=== PATIENT | female | born 1945 | race Caucasian/White ===

== ENCOUNTER 2018-01-30 07:33 | Inpatient (IN) | payer OTHER ==
[~2018-01-30] VITALS: Ht 147.3 cm; Wt 97.1 kg
--- NOTE | 2018-01-30 08:25 | ED DYSPNEA/ASTHMA COMPLAINT ---
History of Present Illness General Chief Complaint: General Adult Stated Complaint: MULTIPLE COMPLAINTS Source: patient, family, old records Exam Limitations: no limitations Vital Signs & Intake/Output Vital Signs & Intake/Output Vital Signs Date Time Temp Pulse Resp B/P B/P Pulse O2 O2 Flow FiO2 Mean Ox Delivery Rate 01/30 1032 81 18 119/58 95 Nasal 2.0L Cannula 01/30 0835 95 Nasal 2.0L Cannula 01/30 0752 99.6 93 24 151/72 90 Nasal 2.0L Cannula Allergies Coded Allergies: metoclopramide (From REGLAN) (CAUSED DEPRESSION 01/30/18) Triage Note: PT PRESENTS TO THE ER C/O COUGHING AND CONSTIPATION YESTERDAY, THEN HER BACK STARTED TO HURT LOWER BACK FLANK PAIN. THEN PT STATES HER PULSE WAS ELEVATED TO THE 90'S. PT HAS INTERSTITIAL LUNG DISEASE AND IS ON HOME 02 2L PRN. PT STATES "I KNOW MY SYMPTOMS SEEM VAGUE, I JUST DONT FEEL RIGHT" PT STATES I HAVE NO ENERGY AND I HAVE INCREASE SOB. Triage Nurses Notes Reviewed? yes HPI: Patient has interstitial lung disease and wears nocturnal oxygen. Yesterday throughout the day she was just feeling fatigued. Patient checked her oxygen level and noticed that it was in the low 90s and her heart rate was in the 90s as well. Patient states her normal heart rate is in the upper 50s to low 60s and the highest usually goes is up into the 70s so that it was 90 was concerning. Patient began to wear her oxygen and her oxygen level came up into the upper 90s however heart rate remained in the 90s. Patient denies any chest pain or palpitations. Patient chronically sleeps on a wedge pillow so does not know if she's been having orthopnea. There is no real dyspnea on exertion. Patient has a chronic dry cough and does not know if it is worse than normal. Overall patient just does not feel well and she cannot pinpoint exactly what is wrong she comes to the emergency department for evaluation. Past History Travel History Traveled to [place] past 21 day No Medical History Any Pertinent Medical History? see below for history Cardiovascular: CHF, hypertension, hyperlipidemia Respiratory: interstitial lung disease Renal: chronic kidney disease Surgical History Surgical History: non-contributory Psychosocial History What is your primary language Tajik Tobacco Use: Never used ETOH Use: denies use Illicit Drug Use: denies illicit drug use Family History Hx Contributory? No Review of Systems Review of Systems Constitutional: Reports: see HPI, chills, weakness. EENTM: Reports: no symptoms. Respiratory: Reports: see HPI, cough, short of breath. Cardiovascular: Reports: no symptoms. GI: Reports: no symptoms. Genitourinary: Reports: no symptoms. Musculoskeletal: Reports: no symptoms. Skin: Reports: no symptoms. Neurological/Psychological: Reports: no symptoms. Hematologic/Endocrine: Reports: no symptoms. Immunologic/Allergic: Reports: no symptoms. All Other Systems: Reviewed and Negative Physical Exam Physical Exam General Appearance: well developed/nourished, alert, awake, anxious, mild distress Head: atraumatic, normal appearance Eyes: Bilateral: PERRL, EOMI. Ears, Nose, Throat: normal pharynx, normal ENT inspection, hearing grossly normal Neck: normal inspection, supple, full range of motion, JVD Respiratory: crackles (BIBASILAR) Cardiovascular: normal peripheral pulses, systolic murmur Gastrointestinal: normal bowel sounds, soft, non-tender, no organomegaly Extremities: normal capillary refill, normal range of motion, pedal edema (TRACE ) Neurologic/Psych: no motor/sensory deficits, awake, alert, oriented x 3, normal gait, normal mood/affect Skin: intact, normal color, warm/dry Lymphatic: no anterior cervical isela Core Measures ACS in differential dx? No CVA/TIA Diagnosis No Sepsis Present: No Sepsis Focused Exam Completed? No Progress Differential Diagnosis: asthma, AMI, bronchitis, CHF, COPD, pulmonary embolism, pneumonia Plan of Care: Orders Procedure Date/time Status Heart Healthy Diet 01/30 L Active ED Holding Orders 01/30 1058 Active Admit to inpatient 01/30 1058 Active Vital Signs 01/30 1058 Active Code Status 01/30 1058 Active Patient Data 01/30 1054 Active US-EXT BILAT VENOUS DOPPLER 01/30 1047 Active Add-on Test (ER Only) 01/30 0945 Active BLOOD CULTURE 01/30 0926 Active LACTIC ACID 01/30 0907 Active Telemetry/Weaving Inspector 01/30 0824 Active TROPONIN LEVEL 01/30 0824 Active D-DIMER 01/30 0824 Complete COMPREHENSIVE METABOLIC PANEL 01/30 0824 Active CBC WITHOUT DIFFERENTIAL 01/31 824 Complete EKG 01/31 0824 Active URINALYSIS 01/30 0811 Complete RAPID VIRAL INFLUENZA A 01/30 0759 Complete Current Medications Sig/Garcia Start time Last Medication Dose Stop Time Status Admin Azithromycin 500 MG ONCE ONE 01/30 1015 AC (Zithromax) 01/30 1114 Dextrose/Water 250 ML (D5W) Guaifenesin 10 ML ONCE ONE 01/30 0900 CAN (Robitussin) 01/30 0901 Laboratory Tests 01/30/18 0907: Anion Gap 16, Estimated GFR 29 L, BUN/Creatinine Ratio 40.0 H, Glucose 187 H, Lactic Acid Pending, Calcium 9.3, Total Bilirubin 0.7, AST 20, ALT 28, Alkaline Phosphatase 92, Troponin I < 0.01, Total Protein 7.3, Albumin 4.4, Globulin 2.9, Albumin/Globulin Ratio 1.5, D-Dimer High Sensitivty 447 H, CBC w Diff MAN DIFF ORDERED, RBC 3.92 L, MCV 89.3, MCH 29.7, MCHC 33.3, RDW 14.6 H, MPV 8.1, Gran % 91.7 H, Lymphocytes % 4.4 L, Monocytes % 3.5, Eosinophils % 0.3, Basophils % 0.1, Absolute Granulocytes 21.5 H, Absolute Lymphocytes 1.0 L, Absolute Monocytes 0.8 H, Absolute Eosinophils 0.1, Absolute Basophils 0, Platelet Estimate VERIFIED BY SMEAR, Anisocytosis 1+ 01/30/18 0820: Urine Color STRAW, Urine Clarity CLEAR, Urine pH 6.0, Ur Specific [place] 1.010, Urine Protein NEG, Urine Ketones NEG, Urine Nitrite NEG, Urine Bilirubin NEG, Urine Urobilinogen 0.2, Ur Leukocyte Esterase NEG, Ur Microscopic EXAM NOT REQUIRED, Urine Hemoglobin NEG, Urine Glucose NEG Microbiology 01/30 1040 BLOOD: Blood Culture - RECD 01/30 1030 BLOOD: Blood Culture - RECD 01/30 08 NASOPHARYN: Influenza Virus A & B Rapid Smear - COMP Diagnostic Imaging: Viewed by Me: Radiology Read. Discussed w/RAD: Radiology Read. CXR Impression: PATIENT: LETTY RITCHIE PRESENT AGE: 72 PATIENT ACCOUNT NO: [id number] : 43 LOCATION: [facility] ORDERING PHYSICIAN: Toño Flores MD SERVICE DATE: 01/30/18 EXAM TYPE: RAD - XRY- PORTABLE CHEST XRAY EXAMINATION: XR PORTABLE CHEST CLINICAL INFORMATION: Pneumonia, cough. COMPARISON: CT chest 12/29/2014. TECHNIQUE: Portable frontal view of the chest was obtained. FINDINGS: There is mild cardiomegaly with increased pulmonary vascularity suggestive of mild pulmonary vascular congestion.. There is haziness in both lung bases likely secondary to congestion and less likely infiltrate. No suggestion of a pleural effusion. No gross bony abnormality. IMPRESSION: Thyromegaly with mild to moderate pulmonary vascular congestion. DICTATED BY: Manuel Snyder MD DATE/TIME DICTATED:01/30/18910 ADMISSIONS CLINICIAN:UZMA DATE/TIME TRANSCRIBED:01/30/18910 CONFIDENTIAL, DO NOT COPY WITHOUT APPROPRIATE AUTHORIZATION. <Electronically signed in Other Vendor System> SIGNED BY: Manuel Snyder MD 01/30/18916 Initial ED EKG: NSR, no ST T wave changes Rhythm Strip: normal sinus rhythm Departure Departure Disposition: STILL A PATIENT Condition: Stable Clinical Impression Primary Impression: Leukocytosis Secondary Impressions: Tachycardia Referrals: Joselyn DISLA,John Tipton (PCP/Family) Departure Forms: Customer Survey General Discharge Information Admission Note Spoke With: Dev DISLA,Jyoti Russo Documentation of Exam: Documentation of any treatments & extenuating circumstances including Concerns Regarding Discharge (functional status, medication knowledge or non-compliance, living conditions, etc.) that warrant an admission rather than observation: [IV ABX, TELE MONITORING, SERIAL ENZYMES, V/Q SCAN, VENOUS DOPPLER] Critical Care Note Critical Care Note Critical Care Time: mins: (90 MIN)
--- NOTE | 2018-01-30 09:17 | RADIOLOGY REPORT ---
EXAMINATION: XR PORTABLE CHEST CLINICAL INFORMATION: Pneumonia, cough. COMPARISON: CT chest 12/29/2014. TECHNIQUE: Portable frontal view of the chest was obtained. FINDINGS: There is mild cardiomegaly with increased pulmonary vascularity suggestive of mild pulmonary vascular congestion.. There is haziness in both lung bases likely secondary to congestion and less likely infiltrate. No suggestion of a pleural effusion. No gross bony abnormality. IMPRESSION: Thyromegaly with mild to moderate pulmonary vascular congestion.
[2018-01-30 09:24] LABS: ABSOLUTE BASOPHIL COUNT 0 /CUMM (0.0-0.2); ABSOLUTE EOSINOPHIL COUNT 0.1 /CUMM (0.0-0.7); ABSOLUTE GRANULOCYTE CT 21.5 /CUMM (1.4-6.5); ABSOLUTE MONOCYTE COUNT 0.8 /CUMM (0.10-0.60); BASOPHIL % 0.1 % (0.0-2.0); EOSINOPHIL % 0.3 % (0-5); GRANULOCYTE % 91.7 % (42.2-75.2); MEAN CORPUSCULAR HGB 29.7 PG (27.0-31.0); MEAN CORPUSCULAR HGB CONC 33.3 G/DL (33.0-37.0); MEAN CORPUSCULAR VOLUME 89.3 FL (81.0-99.0); MEAN PLATELET VOLUME 8.1 FL (7.4-10.4); PLATELET COUNT 317 /CUMM (130-400); RBC DISTRIBUTION WIDTH 14.6 % (11.5-14.5); RED BLOOD CELL CT 3.92 /CUMM (4.20-5.40); WHITE BLOOD CELL COUNT 23.4 /CUMM (4.8-10.8)
--- NOTE | 2018-01-30 11:36 | History & Physical ---
Alejandra DISLAAlexsandra 01/30/18 1136: General Information and HPI MD Statement: I have seen and personally examined LETTY RITCHIE and documented this H&P. The patient is a 72 year old F who presented with a patient stated chief complaint of [Increased Pulse rate at home]. Source of Information: patient Exam Limitations: no limitations History of Present Illness: 72-year-old female with a past medical history of ILD on 2 L nocturnal oxygen, CHF, hypertension, hyperlipidemia, CKD stage III presents with complaints of a higher than normal heart rate in the 90s since yesterday. She reports that yesterday after she came back from shopping, she noticed she was short of breath , her O2 sats were low and she was having trouble recovering which is unusual for her. She also noticed that her HR was also in the high 70s and trending up instead of normalizingto her usual 50/60s to low 70s. She used her NC O2 which increased her O2 sats to the 90s but her HR kept increasing and was at in the 90s at some point which never happens. AFter a few hours, she HR went back down to the 70s. However this morning on waking up, she noticed that her HR was back up in the 80s and she overall did not feel well though she could not put her hand on a particular symptom so she presented in the ED. She has a chronic dry cough for about 20yrs now due to her ILD and sees a Evaporator Repairer at [place] (Dr. Ruiz), was seen last in dec 2017 and was started on symbicort. She also sees Sql Server Bi Developer-Dr. Bailon for her CKD, GI-Dr. Rodriguez for GERD. She does not see an pie maker. Allergies/Medications Allergies: Coded Allergies: metoclopramide (From REGLAN) (CAUSED DEPRESSION 01/30/18) Home Med list Amlodipine Besylate 10 MG TABLET 10 MG PO DAILY CARDIAC (Reported) Aspirin (Aspirin*) 81 MG TAB.CHEW 81 MG PO DAILY CARDIAC (Reported) Atorvastatin Calcium 10 MG TABLET 10 MG PO DAILY CHOLESTEROL (Reported) Benzonatate 200 MG CAPSULE 200 MG PO TIDPRN COUGH (Reported) Budesonide/Formoterol Fumarate (Symbicort 160-4.5 Mcg Inhaler) 160 MCG-4.5 MCG/ ACTUATION HFA.AER.AD 2 PUFF INH BID COUGH (Reported) Carvedilol 12.5 MG TABLET 12.5 MG PO BID BLOOD PRESSURE (Reported) Cholecalciferol (Vitamin D3) 1,000 UNIT TABLET 2 TAB PO DAILY SUPPLEMENT ( Reported) Dextromethorphan Polistirex (Delsym) 30 MG/5 ML IVETT.ER.12H (Unknown Dose) PO PRN COUGH (Reported) Famotidine (Pepcid AC) 20 MG TABLET 20 MG PO DAILY ACID REFLUX (Reported) Furosemide 20 MG TABLET 20 MG PO DAILY DIURETIC (Reported) Glimepiride 4 MG TABLET 4 MG PO DAILY DIABETES (Reported) Hydralazine HCl 25 MG TABLET 25 MG PO TID BLOOD PRESSURE (Reported) Irbesartan 300 MG TABLET 300 MG PO DAILY HTN (Reported) IRON 18 MG TABLET 65 MG PO DAILY SUPPLEMENT (Reported) Loratadine 10 MG TABLET 10 MG PO DAILY COUGH (Reported) Metformin HCl 500 MG TABLET 500 MG PO BID DIABETES (Reported) Multivitamin (Daily Value) 1 EACH TABLET 1 TAB PO DAILY SUPPEMENT (Reported) Pantoprazole Sodium 40 MG TABLET.DR 40 MG PO DAILY ACID REFLUX (Reported) Compliance With Home Meds: GOOD Past History Travel History Traveled to [place] past 21 day No Medical History Cardiovascular: CHF, hypertension, hyperlipidemia Respiratory: interstitial lung disease Renal: chronic kidney disease Surgical History Surgical History: non-contributory Past Family/Social History Family History Relations & Conditions if any BROTHER FH: lung cancer MOTHER FH: stroke FATHER FH: stroke Psychosocial History Where do you live? Home ETOH Use: denies use Illicit Drug Use: denies illicit drug use Review of Systems Review of Systems Constitutional: Reports: chills, weakness. Denies: diaphoresis, fever. Cardiovascular: Denies: chest pain, palpitations. Respiratory: Reports: see HPI. GI: Reports: no symptoms. Genitourinary: Reports: no symptoms. Musculoskeletal: Reports: no symptoms. Skin: Reports: no symptoms. Exam & Diagnostic Data Last 24 Hrs of Vital Signs/I&O Vital Signs Date Time Temp Pulse Resp B/P B/P Pulse O2 O2 Flow FiO2 Mean Ox Delivery Rate 01/30 1313 98.0 78 20 128/60 96 Nasal 2.0L Cannula 01/30 1249 Nasal 1.0L Cannula 01/30 1212 98.7 77 18 115/58 97 Nasal 2.0L Cannula 01/30 1032 81 18 119/58 95 Nasal 2.0L Cannula 01/30 0835 95 Nasal 2.0L Cannula 01/30 0752 99.6 93 24 151/72 90 Nasal 2.0L Cannula Intake & Output 01/30 1600 01/30 0800 01/30 0000 Intake Total 610 Output Total 650 Balance -40 Intake, IV 250 Intake, Oral 360 Number 1 Bowel Movements Output, Urine 650 Patient 205 lb 205 lb Weight Weight Bed scale Reported by Patient Measurement Method Physical Exam General Appearance Alert, Oriented X3, Cooperative, No Acute Distress Skin No Significant Lesion Sepsis Skin Exam (color): Normal for Ethnicity HEENT PERRLA, EOMI, dry mucous membranes Neck Supple, No JVD Cardiovascular Regular Rate, Normal S1, Normal S2 Lungs bibasilar crackles, ocassional wheeze Abdomen Normal Bowel Sounds, Soft, No Tenderness Extremities Normal Pulses, trace pedal edema bilaterally Last 24 Hrs of Labs/Urban: Laboratory Tests 01/30/18 0907: Anion Gap 16, Estimated GFR 29 L, BUN/Creatinine Ratio 40.0 H, Glucose 187 H, Lactic Acid 1.0, Calcium 9.3, Total Bilirubin 0.7, AST 20, ALT 28, Alkaline Phosphatase 92, Troponin I < 0.01, Fhc-S-Ogrkokpmoej Pept Pending, Total Protein 7.3, Albumin 4.4, Globulin 2.9, Albumin/Globulin Ratio 1.5, D-Dimer High Sensitivty 447 H, CBC w Diff MAN DIFF ORDERED, RBC 3.92 L, MCV 89.3, MCH 29.7, MCHC 33.3, RDW 14.6 H, MPV 8.1, Gran % 91.7 H, Lymphocytes % 4.4 L, Monocytes % 3.5, Eosinophils % 0.3, Basophils % 0.1, Absolute Granulocytes 21.5 H, Absolute Lymphocytes 1.0 L, Absolute Monocytes 0.8 H, Absolute Eosinophils 0.1 , Absolute Basophils 0, Platelet Estimate VERIFIED BY SMEAR, Anisocytosis 1+ 01/30/18 0820: Urine Color STRAW, Urine Clarity CLEAR, Urine pH 6.0, Ur Specific [place] 1.010, Urine Protein NEG, Urine Ketones NEG, Urine Nitrite NEG, Urine Bilirubin NEG, Urine Urobilinogen 0.2, Ur Leukocyte Esterase NEG, Ur Microscopic EXAM NOT REQUIRED, Urine Hemoglobin NEG, Urine Glucose NEG Microbiology 01/30 1216 URINE ROUT: Legionella Antigen - COLB 01/30 1216 URINE ROUT: Streptococcus pneumoniae Antigen (M - COLB 01/30 1216 LOWER RESP: Respiratory Culture - COLB 01/30 1216 LOWER RESP: Gram Stain - COLB 01/30 1040 BLOOD: Blood Culture - RECD 01/30 1030 BLOOD: Blood Culture - RECD 01/30 0800 NASOPHARYN: Influenza Virus A & B Rapid Smear - COMP Diagnostic Data EKG Results NSR, no ST changes, rate 89 CXR Results Thyromegaly with mild to moderate pulmonary vascular congestion. Assessment/Plan Assessment: 72-year-old female with a past medical history of ILD on 2 L nocturnal oxygen, CHF, hypertension, hyperlipidemia, CKD stage III presents with complaints of a higher than normal heart rate in the 90s since yesterday. Assessment 1. Suspected community acquired pneumonia r/o vascular congestion 2. JOSE on CKD 3. History of ILD with chronic cough 4. Low suspicion for PE; Wells Score <2; D-dimer 447, LE dopplers negative for DVT 5. Thromegally on CXR Plan -Admit to Tele for close monitoring -Trend troponins and EKG -Check a non-contrast CT to better delineate PNA and r/o congestion -Check Legionella and strep pneumo antigens -Sputum culture if able to produce sputum; blood cultures x 2 -Continue IV ceftriaxone and azithromycin for possible CAP -Hold IVF for now, encourage oral intake for rehydration -Check a pro-BNP, check TSH -Check Legionella, Strep Pneumo Antigens -Hold oral hypoglycemics-Give Novolog SS Insulin and check fingersticks TIDAC/HS -Hold lasix and irbesatan due to JOSE -Resume her other important home medications -TRC nebs and O2 as needed -Repeat CBC/BEP in AM-F/U WBC and Creatinine -Vitals Q shift; watch for fevers -Follow attending recommendations As Ranked By This Provider Problem List: 1. Tachycardia 2. Pneumonia 3. JOSE (acute kidney injury) Core Measures/Misc (07/19) Acute Coronary Syndrome ACS Diagnosis: No Congestive Heart Failure Congestive Heart Failure Diagnosis No Cerebrovascular Accident CVA/TIA Diagnosis: No VTE (View Protocol) VTE Risk Factors Acute Medical Illness No Mechanical VTE Prophylaxis d/t N/A MechProphylax Ordered No VTE Pharm Prophylaxis d/t NA PharmProphylax ordered Sepsis (View protocol) Sepsis Present: No Resident Review Statement Resident Statement: examined this patient Other Findings: see HPI Jyoti Méndez MD 01/30/18 1425: Attending MD Review Statement Attending Statement Attending MD Statement: examined this patient, discuss w/resident/PA/DUPLICATE MAKER, agreed w/resident/PA/DUPLICATE MAKER, reviewed EMR data (avail), discussed with case mgmt, reviewed images Attending Assessment/Plan: 82-year-old fairly complex female with past medical history of centrilobular emphysema and interstitial lung disease on nocturnal oxygen, diabetes, hypertension and hyperlipidemia. She is here with a constellation of nonspecific symptoms with acute hypoxemic respiratory failure as evidenced by a sat of 78-86% in the emergency room with minimal activity and mild ambulation, cough with phlegm, tachycardia, leukocytosis with a left shift, a chest x-ray that's uninterpretable given her underlying lung disease and JOSE with a BUN of 68 and a creatinine of 1.7. I think all of her symptoms are due to an underlying infection and right now I' ll give her IV ceftriaxone and azithromycin given that blood cultures have been obtained to cover for community-acquired pneumonia. Obviously given her underlying interstitial lung disease I have to consider the possibility of other atypical organisms as well. We'll need to follow her clinical status closely in terms of her white count, saturation and heart rate. And check a sputum Gram stain and culture. I think the JSOE is secondary to the infection. She has a history of chronic CHF, she doesn't appear to be in acute CHF but will get a BNP. Given the uninterpretability of the chest x-ray, will get a noncontrast chest CT at this point which did help us define how much of this is pneumonia, exacerbation of ILD and/or CHF. We'll hold her Lasix and Arb given the JOSE and continue her Norvasc, aspirin and statin, Coreg and hydralazine. Continue TRC with nebs with her Symbicort. Put her on DVT prophylaxis and follow closely. Also fingersticks with insulin sliding scale.
[2018-01-30] MEDS ORDERED: AMLODIPINE BESY10 M1 PO (11:47)
[2018-01-30] MEDS ORDERED: IRBESARTAN300 M1 PO (11:47)
[2018-01-30] MEDS ORDERED: HYDRALAZINE HCL25 M1 PO (11:48)
[2018-01-30] MEDS ORDERED: CARVEDILOL12.5 M1 PO (11:48)
[2018-01-30] MEDS ORDERED: ATORVASTATIN CA10 M1 PO (11:48)
[2018-01-30] MEDS ORDERED: GLIMEPIRIDE4 M1 PO (11:49)
[2018-01-30] MEDS ORDERED: METFORMIN HCL500 M3 PO (11:49)
--- NOTE | 2018-01-30 11:49 | ULTRASOUND REPORT ---
EXAMINATION: US TRIPLEX OF LOWER EXTREMITIES, BILATERAL CLINICAL INFORMATION: Positive d-dimer. COMPARISON: None TECHNIQUE: Color-flow triplex imaging with spectral analysis and compression Doppler were performed on the lower extremities. FINDINGS: Respiratory variation, normal compression and augmented flow are noted throughout the lower extremities. The visualized common femoral vein, superficial femoral vein, profunda femoral vein, popliteal vein and midcalf peroneal and posterior tibial venous segments show no evidence of deep venous thrombosis. There is no Narayanan's cyst. IMPRESSION: Normal triplex scan without evidence of deep venous thrombosis involving the lower extremities.
[2018-01-30] MEDS ORDERED: FUROSEMIDE20 M1 PO (11:50)
[2018-01-30] MEDS ORDERED: PANTOPRAZOLE SO40 M1 PO (11:50)
[2018-01-30] MEDS ORDERED: PEPCID AC20 M2 PO (11:50)
[2018-01-30] MEDS ORDERED: BENZONATATE200 M1 PO (11:51)
[2018-01-30] MEDS ORDERED: SYMBICORT 16010.2 GM INH (11:51)
[2018-01-30] MEDS ORDERED: ASPIRIN81 M4 PO (11:52)
[2018-01-30] MEDS ORDERED: DELSYM30 MG/5 M1 PO (11:52)
[2018-01-30] MEDS ORDERED: LORATADINE10 M1 PO (11:53)
[2018-01-30] MEDS ORDERED: VITAMIN D31000 UNI2 PO (11:54)
[2018-01-30] MEDS ORDERED: DAILY VALUE1 EACH PO (11:54)
[2018-01-30] MEDS ORDERED: IRON18 MG PO (11:55)
[2018-01-30 13:13] VITALS: BP 128/60
--- NOTE | 2018-01-30 14:11 | Admission Certification ---
Admission Certification Certification Statement - As attending physician, I certify that at the time of - admission, based on clinical presentation, severity of - symptoms, need for further diagnostic testing and - therapeutic interventions, and risk of adverse outcomes - without in-hospital treatment, in my clinical assessment, - this patient requires an acute hospital stay for a minimum - of two nights or longer. I have also considered psychsocial - factors such as support system, advanced age, financial - issues, cognitive issues, and failed out-patient treatments, - past re-admission history, safety of patient, and lack of - compliance as applicable. Specific rationale supporting this admission is: Community-acquired pneumonia in patient with underlying interstitial lung disease, JOSE and tachycardia.
--- NOTE | 2018-01-30 18:23 | CT SCAN REPORT ---
EXAMINATION: CT CHEST WITHOUT CONTRAST CLINICAL INFORMATION: Tachycardia, elevated white blood cell count, increased O2 requirement. History of interstitial lung disease. Presumptive diagnosis of pneumonia, rule out congestion. COMPARISON: Chest x-ray dated 01/30/2018. The scan of the chest dated 12/29/2014. TECHNIQUE: Multidetector volumetric CT imaging of the chest was obtained noncontrast. Sagittal and coronal reformations were obtained. DLP: 448.28 mGy-cm. FINDINGS: LUNGS: Diffuse subpleural reticulation and interlobular septal thickening is seen involving all lobes of the lungs, unchanged in distribution when compared to the prior exam. There may be interval progression in the extent of disease in the lower lobes bilaterally with increasing reticulation and thickening of the septae noted. A few subtle areas of subpleural honeycomb cyst formation is also noted. There are also superimposed increasing patchy groundglass opacities in the mid and lower lungs and subtle tubular bronchiectatic changes are now more evident in the right middle lobe and lingula and to a lesser extent in both lower lobes. There are multiple scattered calcified granulomas in the lungs bilaterally. No suspicious solid noncalcified lung nodule or mass. No effusion or pneumothorax. LYMPHOVASCULAR STRUCTURES: Aortic and heart size normal. No pericardial effusion. Prominent atherosclerotic calcifications of the coronary arteries, especially the left anterior descending coronary artery and its branches are seen. There is enlargement of the main, right and left pulmonary arteries with the main pulmonary artery measuring 3.3 cm as compared to the aorta at the same level, which measures 3.2 cm in maximal diameter. Findings are suspicious for pulmonary arterial hypertension. There are multiple enlarged mediastinal lymph nodes, including a right lower paratracheal lymph node, which measures 1.4 cm in short axis as compared to 1.1 cm previously. A left lower paratracheal lymph node measures 1.2 cm in short axis as compared to 0.7 cm previously. Subcarinal lymph nodes measure up to 1.2 cm as compared to 0.9 cm previously. Evaluation of the raffaele is difficult for the presence of lymph nodes since no intravenous contrast was given. Right hilar adenopathy is suspected, measuring up to 1.3 cm in short axis as compared to 0.9 cm previously. No significant hilar adenopathy is noted. THYROID GLAND: Unremarkable to the extent included. UPPER ABDOMEN: Post cholecystectomy digna is seen in the gallbladder fossa. Included portions of the liver and spleen are unremarkable. Pancreas is diffusely atrophic and fat infiltrated. Both adrenal glands are normal. The kidneys bilaterally demonstrate variably sized masses, several of which are fluid attenuation and consistent with cysts. Some of the masses are hyperdense, including a 0.7 cm mid right renal mass (series 2, image 240), not included on prior CT scan and a 1.2 x 0.7 cm hyperdense mass in the upper pole of the left kidney, larger compared to 0.7 cm previously. These bilateral hyperdense renal masses measure greater than 70 Hounsfield units and are most consistent with hemorrhagic cysts. BONES: There is diffuse osteopenia with multilevel moderate vertebral spondylosis throughout the lower cervical, thoracic, and upper lumbar spine. No suspicious bone findings. IMPRESSION: 1. Lung parenchymal findings are similar in distribution to the previous CT scan from 2015 but increased in severity, especially in the mid and lower lung zones bilaterally. Findings are suspicious for progressive interstitial lung disease and fibrosis, as can be seen with UIP pattern, such as idiopathic pulmonary fibrosis. Close clinical correlation is requested. 2. Enlarging mediastinal adenopathy is seen. This could potentially be reactive to the progressive lung disease. However, close clinical correlation and follow-up is recommended. 3. Findings consistent with pulmonary arterial hypertension. 4. Evidence of prior granulomatous lung disease. 5. Bilateral renal cysts and probable hyperdense hemorrhagic cysts.
[2018-01-30 22:39] VITALS: BP 141/67
[2018-01-31 07:19] VITALS: BP 134/54
[2018-01-31 08:18] LABS: ABSOLUTE BASOPHIL COUNT 0 /CUMM (0.0-0.2); ABSOLUTE EOSINOPHIL COUNT 0.1 /CUMM (0.0-0.7); ABSOLUTE LYMPH COUNT 2.1 /CUMM (1.2-3.4); ABSOLUTE MONOCYTE COUNT 0.8 /CUMM (0.10-0.60); BASOPHIL % 0.2 % (0.0-2.0); GRANULOCYTE % 76.8 % (42.2-75.2); HEMATOCRIT 31.3 % (37-47); MEAN CORPUSCULAR HGB 29.9 PG (27.0-31.0); MEAN CORPUSCULAR HGB CONC 33.2 G/DL (33.0-37.0); MEAN PLATELET VOLUME 8.6 FL (7.4-10.4); PLATELET COUNT 278 /CUMM (130-400); RBC DISTRIBUTION WIDTH 14.9 % (11.5-14.5); RED BLOOD CELL CT 3.47 /CUMM (4.20-5.40)
--- NOTE | 2018-01-31 08:50 | PN- Housestaff ---
Adebayo DISLA,[facility] 01/31/18 0850: Subjective Follow-up For: CAP Interstitial lung disease Subjective: Patient was seen and examined this morning, offers no new complaints. Continues to have her chronic dry cough, no fever or chills. No overnight events reported by the nurse of the patient. Vital signs are stable. Review of Systems Constitutional: Reports: see HPI. Objective Last 24 Hrs of Vital Signs/I&O Vital Signs Date Time Temp Pulse Resp B/P B/P Pulse O2 O2 Flow FiO2 Mean Ox Delivery Rate 01/31 0932 78 134/54 01/31 0931 78 134/54 01/31 0931 78 134/54 01/31 0719 98.3 78 16 134/54 96 Nasal 2.0L Cannula 01/31 0000 Nasal 2.0L Cannula 01/30 2312 Nasal 2.0L Cannula 01/30 2251 78 140/78 01/30 2239 98.6 76 20 141/67 96 Nasal 2.0L Cannula 01/30 2113 89 140/78 01/30 1729 78 128/60 Intake & Output 01/31 1600 01/31 0800 01/31 0000 Intake Total 120 120 Output Total Balance 120 120 Intake, Oral 120 120 Patient 97.069 kg Weight Weight Bed scale Measurement Method Physical Exam General Appearance: Alert, Oriented X3, Cooperative, No Acute Distress Skin: No Rashes, No Breakdown, No Significant Lesion Skin Temp/Moisture Exam: Warm/Dry HEENT: Atraumatic, PERRLA, EOMI, Mucous Membr. moist/pink Neck: Supple Cardiovascular: Regular Rate, Normal S1, Normal S2, No Murmurs Lungs: Clear to Auscultation Abdomen: Normal Bowel Sounds, Soft, No Tenderness Neurological: Normal Gait, Normal Speech, Strength at 5/5 X4 Ext, Normal Tone, Sensation Intact, Cranial Nerves 3-12 NL, Reflexes 2+ Extremities: No Clubbing, No Cyanosis, No Edema, Normal Pulses Assessment/Plan Assessment: Ms. Murphy is 72-year-old female with a past medical history of ILD on 2 L nocturnal oxygen, CHF, hypertension, hyperlipidemia, CKD stage III presents with complaints of elevated heart rate. Assessment 1. Community-acquired pneumonia in setting of interstitial lung disease--DVT where excluded 2. JOSE on CKD 3. Thyromegally on CXR Plan -Patient is responding well to antibiotic, white blood cell decreased from 23-13 -Continue ceftriaxone and azithromycin IV -Continue TRC and nebs -Trops, EKG, Legionella and strep pneumonia antigens are negative -Follow up sputum, blood culture -Patient wants to use her own normal saline nasal spray and diphenhydramine for nasal congestion, were ordered in addition to Flonase nasal spray -Continue Novolog SS Insulin and check fingersticks TIDAC/HS -Continue to hold Lasix and irbesatan, follow kidney function closely to determine when to start medication -Follow attending recommendations Problem List: 1. Pneumonia Pain Ratin Pain Location: n/a Pain Goal: Pain 4 or less Pain Plan: see medication Tomorrow's Labs & Rationales: CBC, BMP Dev DISLA,Jyoti 01/31/18 1156: Attending MD Review Statement Attending Statement Attending MD Statement: examined this patient, discuss w/resident/PA/TOUR BUS DRIVER/GUIDE, agreed w/resident/PA/TOUR BUS DRIVER/GUIDE, reviewed EMR data (avail), reviewed images Attending Assessment/Plan: 72-year-old fairly complex female with past medical history of centrilobular emphysema and interstitial lung disease on nocturnal oxygen, diabetes, hypertension and hyperlipidemia. She is here with a constellation of nonspecific symptoms with acute hypoxemic respiratory failure as evidenced by a sat of 78-86% in the emergency room with minimal activity and mild ambulation, cough with phlegm, tachycardia, leukocytosis with a left shift, a chest x-ray that's uninterpretable given her underlying lung disease and JOSE with a BUN of 68 and a creatinine of 1.7. We are treating her with IV ceftriaxone and azithromycin for community-acquired pneumonia. We repeated the noncontrast chest CT yesterday which shows a worsening of the interstitial lung disease suggestive of fibrosis versus UIP. She clearly follows with a interstitial lung disease doctor at [place]. She is well aware of the progression of the disease and follows closely with that physician at [place]. She says she was referred to that physician by a support architect here locally. At this point overall she appears to be slightly better. Her white count has come down and her O2 sats are doing better. She does have evidence of adenopathy in the chest CT that's likely reactive and she also has evidence of pulmonary arterial hypertension which explains why she takes the Lasix. Given the JOSE on CKD we have the arb and Lasix on hold. For the diabetes we also have the glimepiride and metformin on hold. Will need to follow the white count and the renal function and make a decision about restarting them slowly one at a time. Her tachycardia is better with treatment of the infection and the Dopplers negative for a DVT. I think we can safely take her off the monitor and treat her as a GEN med patient.
[2018-01-31 14:00] VITALS: BP 112/60
[2018-01-31 23:04] VITALS: BP 138/64
[2018-02-01 06:39] VITALS: BP 124/68
[2018-02-01 07:49] LABS: ABSOLUTE BASOPHIL COUNT 0.1 /CUMM (0.0-0.2); ABSOLUTE EOSINOPHIL COUNT 0.3 /CUMM (0.0-0.7); ABSOLUTE LYMPH COUNT 2.3 /CUMM (1.2-3.4); ABSOLUTE MONOCYTE COUNT 0.8 /CUMM (0.10-0.60); BASOPHIL % 0.6 % (0.0-2.0); EOSINOPHIL % 2.7 % (0-5); GRANULOCYTE % 67.2 % (42.2-75.2); HEMATOCRIT 30.9 % (37-47); MEAN CORPUSCULAR HGB 29.8 PG (27.0-31.0); MEAN CORPUSCULAR HGB CONC 33.1 G/DL (33.0-37.0); MEAN CORPUSCULAR VOLUME 90.1 FL (81.0-99.0); MEAN PLATELET VOLUME 8.4 FL (7.4-10.4); PLATELET COUNT 271 /CUMM (130-400); RBC DISTRIBUTION WIDTH 14.3 % (11.5-14.5); RED BLOOD CELL CT 3.43 /CUMM (4.20-5.40); WHITE BLOOD CELL COUNT 10.5 /CUMM (4.8-10.8)
--- NOTE | 2018-02-01 08:32 | PN- Housestaff ---
Ailyn Grimaldo MD,[facility] 02/01/18 0832: Subjective Follow-up For: CAP Interstitial lung disease Complaints: no complaints Subjective: Patient was comfortably sitting in the chair. She did not offer any acute complaints. She denied any acute shortness of breath or chest pain. She does have some residual cough. She remained afebrile. Review of Systems Constitutional: Denies: chills, fever. EENTM: Denies: visual changes. Cardiovascular: Denies: chest pain, palpitations. Respiratory: Reports: cough. Denies: short of breath. Gastrointestinal: Denies: abdominal pain, nausea, vomiting. Genitourinary: Denies: dysuria. Objective Last 24 Hrs of Vital Signs/I&O Vital Signs Date Time Temp Pulse Resp B/P B/P Pulse O2 O2 Flow FiO2 Mean Ox Delivery Rate 02/01 0917 74 150/60 02/01 0916 74 150/60 02/01 0639 97.8 76 18 124/68 95 Nasal Cannula 01/31 2304 98.1 82 16 138/64 96 Nasal 2.0L Cannula 01/31 2237 Nasal 2.0L Cannula 01/31 2220 82 168/64 01/31 2220 82 138/64 01/31 1700 97.8 01/31 1400 97.8 80 20 112/60 94 Intake & Output 02/01 1600 02/01 0800 02/01 0000 Intake Total 240 480 Output Total Balance 240 480 Intake, Oral 240 480 Number 0 1 Bowel Movements Patient 214 lb Weight Physical Exam General Appearance: Alert, Oriented X3, Cooperative, No Acute Distress HEENT: Atraumatic Neck: No JVD Cardiovascular: Regular Rate, Normal S1, Normal S2 Lungs: Clear to Auscultation, Normal Air Movement Abdomen: Normal Bowel Sounds, Soft, No Tenderness Neurological: Normal Speech, Normal Tone, Sensation Intact Extremities: No Cyanosis, No Edema Vascular: Normal Pulses Current Medications: Current Medications Sig/Garcia Start time Last Medication Dose Route Stop Time Status Admin Acetaminophen 650 MG .STK-MED ONE 01/31 2211 DC PO 02/01 2212 Acetaminophen 650 MG Q6P PRN 01/30 1430 AC 01/31 PO 2221 Amlodipine Besylate 10 MG 2200 02/01 2200 AC PO Amlodipine Besylate 10 MG DAILY 01/31 1000 DC 01/31 PO 0932 Aspirin 81 MG DAILY 02/01 1000 AC 02/01 PO 0917 Atorvastatin Calcium 10 MG DAILY 01/31 1000 AC 02/01 PO 0918 Azithromycin 500 MG Q24H 01/31 1200 AC 01/31 Sodium Chloride 250 ML IV 1102 Benzonatate 200 MG TID PRN 01/30 1445 AC 02/01 PO 0506 Budesonide/ 2 PUF BID 01/30 2200 AC 02/01 Formoterol Fumarate INH 0934 Carvedilol 12.5 MG BID 01/30 2200 AC 02/01 PO 0917 Ceftriaxone Sodium 1,000 MG DAILY@1100 01/31 1100 AC 01/31 IV 1053 Cholecalciferol 2,000 IU DAILY 01/31 1000 AC 02/01 PO 0924 Fluticasone 2 SPRAY DAILY PRN 01/31 1015 AC Propionate SARAH Guaifenesin 10 ML .STK-MED ONE 01/31 2300 DC PO 01/31 2301 Guaifenesin 10 ML Q4P PRN 01/30 1430 AC 02/01 PO 0936 Guaifenesin/ 10 ML .STK-MED ONE 01/31 1903 DC Dextromethorphan PO 01/31 1904 Heparin Sodium 5,000 UNIT Q8 01/30 1429 AC (Porcine) SC Hydralazine HCl 25 MG TID 01/30 1600 AC 02/01 PO 0916 Insulin Aspart 0 TIDAC 01/30 1700 AC 01/31 SC 1700 Multivitamins 1 TAB DAILY 01/31 1000 AC 02/01 Therapeutic PO 0923 Omeprazole 40 MG DAILY AC 01/31 0700 AC 02/01 PO 0507 Phenylephrine HCl 1 SPRAY AT BEDTIME 01/31 2200 AC 01/31 SARAH 02/02 2201 2222 Polyethylene Glycol 17 GM DAILY 01/30 1436 AC 02/01 PO 0921 Psyllium Hydrophilic 1 PAC DAILY 01/31 1000 AC 02/01 Mucilloid PO 0918 Senna/Docusate Sodium 2 TAB DAILY PRN 01/30 1445 AC PO Sodium Chloride 2 SPRAY Q4P PRN 01/30 1545 AC SARAH Last 24 Hrs of Lab/Urban Results Last 24 Hrs of Labs/Mics: Laboratory Tests 02/01/18 0640: Anion Gap 14, Estimated GFR 37 L, BUN/Creatinine Ratio 32.1 H, CBC w Diff NO MAN DIFF REQ, RBC 3.43 L, MCV 90.1, MCH 29.8, MCHC 33.1, RDW 14.3, MPV 8.4, Gran % 67.2, Lymphocytes % 22.2, Monocytes % 7.3, Eosinophils % 2.7, Basophils % 0.6, Absolute Granulocytes 7.0 H, Absolute Lymphocytes 2.3, Absolute Monocytes 0.8 H, Absolute Eosinophils 0.3, Absolute Basophils 0.1 Lines/Diet/Fluids Fluids/Infusions: none Lines: peripheral lines Restraints: none Assessment/Plan Assessment: 72-year-old female with past medical history significant for non-insulin- dependent diabetes mellitus, centrilobular emphysema and interstitial lung disease, follows up with box toe buffer at [facility], on 1-3 L of oxygen as needed, history of hypertension, history of hyperlipidemia, history of stage III chronic kidney disease, came to emergency department with chief complaint of increased heart rate. Patient was admitted on telemetry for suspicion of tachycardia and then transferred to general medicine floor for the management of following problems. Community-acquired pneumonia in setting of interstitial lung disease/ centrilobular emphysema Patient presented with leukocytosis 23 and left-sided shift which decreased to 13 yesterday. Today white count has normalized. She did not have any high- grade temperature spikes during hospitalization. Overnight she remained afebrile. She does not have any congestion/Rales or crackles examination. She is not tachypneic, but does complain of some residual cough and currently at her baseline oxygen requirement. Patient was treated for suspected community- acquired pneumonia with IV antibiotics and putting ceftriaxone and azithromycin. Since patient is stable today and her oxygen requirement is at his baseline we can switched antibiotics to by mouth and discharge the patient. Legionella and strep pneumonia antigens are negative. CAT scan of the chest was obtained without IV contrast that showed Lung parenchymal findings are similar in distribution to the previous CT scan from 2015 but increased in severity, especially in the mid and lower lung zones bilaterally. Enlarging mediastinal adenopathy, and pulmonary arterial hypertension are also seen. Evidence of prior granulomatous lung disease. Reason for obtaining CAT scan was confusing picture of chest x-ray that showed cardiomegaly and congestion along with leukocytosis. CT scan of the chest reported findings suspicious for pulmonary arterial hypertension. Patient was told to follow-up with box toe buffer at [facility] after discharge and will provide her the copies of this CAT scan. Patient had a d-dimer is slightly elevated therefore ultrasound extremity was ordered which was negative for DVT. Acute on chronic CKD- resolved Patient was admitted with a creatinine of 1.7. Her baseline is 1.4-1.3. She is likely dehydrated as patient admitted to decreased by mouth intake. Currently she is back to her baseline History of eng-[id number] diabetes mellitus Fingersticks are well controlled. Patient currently on insulin sliding scale. We'll switch to insulin sliding scale back to by mouth oral hypoglycemic agents on discharge. Patient is full code Patient is on diabetic diet Patient is on pain management Patient is on heparin for DVT prophylaxis Problem List: 1. Pneumonia Pain Ratin Pain Location: NA Pain Goal: Pain 4 or less Pain Plan: Continue current pain meds Tomorrow's Labs & Rationales: Not needed as patient be discharged Raymond Coleman MD 02/01/18 1715: Attending MD Review Statement Attending Statement Attending MD Statement: examined this patient, discuss w/resident/PA/NEEDLE PUNCH MACHINE OPERATOR HELPER, agreed w/resident/PA/NEEDLE PUNCH MACHINE OPERATOR HELPER, reviewed EMR data (avail), discussed with case mgmt, amended to note Attending Assessment/Plan: The patient was seen and discussed with house staff. OK to discharge today. Patient is back to baseline. Follow-up with [facility].
--- NOTE | 2018-02-01 11:10 | Patient Discharge Instructions ---
Discharge Instructions General Discharge Information You were seen/treated for: CAP Interstitial lung disease Special Instructions: Follow-up with bending shed worker Dr.Antino Alexis, at [facility] after discharge. Follow-up with primary care doctor after discharge. Follow-up [facility] in a week after discharge Diet Continue normal diet: Yes Recommended Diet: Diabetic Activity Full Activity/No Limits: Yes Acute Coronary Syndrome Inclusion Criteria At DC or during hospital stay patient has or had the following: ACS DIAGNOSIS No Discharge Core Measures Meds if any: Prescribed or Continued at Discharge Meds if any: NOT Prescribed or Continued at Discharge Congestive Heart Failure Inclusion Criteria At DC or during hospital stay patient has or had the following: CHF DIAGNOSIS No Discharge Core Measures Meds if any: Prescribed or Continued at Discharge Meds if any: NOT Prescribed or Continued at Discharge Cerebrovascular accident Inclusion Criteria At DC or during hospital stay patient has or had the following: CVA/TIA Diagnosis No Discharge Core Measures Meds if any: Prescribed or Continued at Discharge Meds if any: NOT Prescribed or Continued at Discharge Venous thromboembolism Inclusion Criteria VTE Diagnosis No VTE Type NONE VTE Confirmed by (Test) NONE Discharge Core Measures - Per Current guidelines, there needs to be overlap - treatment for the first 5 days of Warfarin therapy. - If discharged on Warfarin prior to 5 days of - overlap therapy, the patient will need to be - assessed for post discharge needs including - *Post discharge parental anticoagulation - *Warfarin and/or parental anticoagulation education - *Follow up date to check INR post discharge At least 5 days overlap therapy as Inpatient No Meds if any: Prescribed or Continued at Discharge Note: Overlap Therapy is Warfarin and Anticoagulant Meds if any: NOT Prescribed or Continued at Discharge
[2018-02-01] MEDS ORDERED: AZITHROMYCIN250 M1 PO ×2 (12:39→14:09)
[2018-02-01 14:57] VITALS: BP 158/56
--- NOTE | 2018-02-01 15:54 | Discharge Summary ---
Visit Information Visit Dates Admission Date: 01/30/18 Discharge Date: 02/01/18 Hospital Course Course Attending Physician: Raymond Coleman MD Primary Care Physician: John Alves MD Hospital Course: 72-year-old female with past medical history significant for non-insulin- dependent diabetes mellitus, centrilobular emphysema and interstitial lung disease, follows up with investigative reporter at [facility], on 1-3 L of oxygen as needed, history of hypertension, history of hyperlipidemia, history of stage III chronic kidney disease, came to emergency department with chief complaint of increased heart rate. Patient was admitted on telemetry for suspicion of tachycardia and then transferred to general medicine floor for the management of following problems. Community-acquired pneumonia in setting of interstitial lung disease/ centrilobular emphysema Patient presented with leukocytosis 23 and left-sided shift which decreased to 13 yesterday. Her white count normalized in 2 days. She did not have any high- grade temperature spikes during hospitalization. She did not have any congestion/rales or crackles on lung examination. She was not tachypneic, but did complain of some residual cough andon discharge she was at her baseline oxygen requirement. Patient was treated for suspected community-acquired pneumonia with IV antibiotics ceftriaxone and azithromycin. Legionella and strep pneumonia antigens are negative. CAT scan of the chest was obtained without IV contrast that showed Lung parenchymal findings are similar in distribution to the previous CT scan from 2015 but increased in severity, especially in the mid and lower lung zones bilaterally. Enlarging mediastinal adenopathy, and pulmonary arterial hypertension are also seen. Evidence of prior granulomatous lung disease. Reason for obtaining CAT scan was confusing picture of chest x-ray that showed cardiomegaly and congestion along with leukocytosis. CT scan of the chest reported findings suspicious for pulmonary arterial hypertension. We switched antibiotics to by mouth and discharged the patient on PO azithromycin. Patient was told to follow-up with investigative reporter at [facility] after discharge and will provide her the copies of this CAT scan. Acute on chronic CKD stage 3- resolved Patient was admitted with a creatinine of 1.7. Her baseline is 1.4-1.3. She was likely dehydrated as patient admitted to decreased by mouth intake. Currently she is back to her baseline creatinine levels. History of [id number] diabetes mellitus Fingersticks were well controlled. Patient was on insulin sliding scale during the hospitalization. We switched the insulin sliding scale back to by mouth oral hypoglycemic agents on discharge. Patient had a d-dimer on admission, which was slightly elevated therefore ultrasound extremity was ordered which was negative for DVT. On the initial admission H&P, CHF was mentioned but there was no evidene based on the clinical data. Patient was full code Patient was on diabetic diet Patient was on pain management Patient was on heparin for DVT prophylaxis Allergies: Coded Allergies: metoclopramide (From REGLAN) (CAUSED DEPRESSION 01/30/18) Disposition Summary Disposition Principal Diagnosis: Community-acquired pneumonia in setting of interstitial lung disease/ centrilobular emphysema Acute on chronic CKD- resolved Additional Diagnosis: History of [id number] diabetes mellitus Discharge Disposition: home or self care Discharge Instructions General Discharge Information Code Status: Full Code Patient's Diet: Patient is on diabetic diet Patient's Activity: As tolerated Follow-Up Instructions/Appts: Follow-up with investigative reporter Dr.Antino Alexis, at [facility] after discharge. Follow-up with primary care doctor after discharge. Follow-up [facility] in a week after discharge Medications at Discharge Discharge Medications: Continue taking these medications: Amlodipine Besylate (Amlodipine Besylate) 10 MG TABLET 10 Milligram ORAL DAILY Qty = 90 Comments: NOT GIVEN Irbesartan (Irbesartan) 300 MG TABLET 300 Milligram ORAL DAILY Qty = 90 Comments: NOT GIVEN Hydralazine HCl (Hydralazine HCl) 25 MG TABLET 25 Milligram ORAL THREE TIMES DAILY Qty = 270 Comments: Last Taken: 02/01/18 Time: 9:16 AM Carvedilol (Carvedilol) 12.5 MG TABLET 12.5 Milligram ORAL TWICE DAILY Qty = 180 Comments: Last Taken: 02/01/18 Time: 9:17 AM Atorvastatin Calcium (Atorvastatin Calcium) 10 MG TABLET 10 Milligram ORAL DAILY Qty = 90 Comments: Last Taken: 02/01/18 Time: 9:18 AM Glimepiride (Glimepiride) 4 MG TABLET 4 Milligram ORAL DAILY Qty = 90 Comments: NOT GIVEN Metformin HCl (Metformin HCl) 500 MG TABLET 500 Milligram ORAL TWICE DAILY Qty = 180 Comments: NOT GIVEN Pantoprazole Sodium (Pantoprazole Sodium) 40 MG TABLET.DR 40 Milligram ORAL DAILY Qty = 90 Comments: Last Taken: 02/01/18 Time: 5:00 AM Famotidine (Pepcid AC) 20 MG TABLET 20 Milligram ORAL DAILY Comments: NOT GIVEN Furosemide (Furosemide) 20 MG TABLET 20 Milligram ORAL DAILY Qty = 90 Comments: NOT GIVEN Benzonatate (Benzonatate) 200 MG CAPSULE 200 Milligram ORAL THREE TIMES A DAY NEEDED Qty = 90 Comments: Last Taken: 02/01/18 Time: 5:06 AM Budesonide/Formoterol Fumarate (Symbicort 160-4.5 Mcg Inhaler) 160 MCG-4.5 MCG/ ACTUATION HFA.AER.AD 2 PUFF Inhale through mouth TWICE DAILY Qty = 10 Comments: Last Taken: 02/01/18 Time: 9:34 AM Dextromethorphan Polistirex (Delsym) 30 MG/5 ML IVETT.ER.12H 30 Milligram ORAL EVERY 8 HOURS as needed for COUGH Comments: NOT GIVEN Aspirin (Aspirin*) 81 MG TAB.CHEW 81 Milligram ORAL DAILY Comments: Last Taken: 02/01/18 Time:9:17 AM Loratadine (Loratadine) 10 MG TABLET 10 Milligram ORAL DAILY Comments: NOT GIVEN Multivitamin (Daily Value) 1 EACH TABLET 1 Tablet ORAL DAILY Comments: PT TAKES MAGNESIUM 133MG/CALCIUM 333MG/ZINC 5MG/D3 200 IU MULTIVITAMIN GIVEN 9:23 AM Cholecalciferol (Vitamin D3) 1,000 UNIT TABLET 2 Tablet ORAL DAILY Comments: Last Taken: 02/01/18 Time: 9:24 AM IRON (IRON) 18 MG TABLET 65 Milligram ORAL DAILY Comments: NOT GIVEN Start taking the following new medications: Azithromycin (Azithromycin) 250 MG TABLET 1 Tablet ORAL DAILY Qty = 6 No Refills Copies To: Joselyn DISLA,John Tipton Attending Review Statement Documenting Attending: Raymond Coleman MD Other Findings: The patient was seen and discussed with house staff. Agree with the plan of care as outlined.
== END 2018-02-01 15:42 | DRG 194 ==
LOC: ERH 07:33 → ERHI 10:58 → 2NA 10:58 → ENRESERV 11:23 → ENTRNSPT 12:22 → EDTRNSPT 12:25 → EDTRNSPTSTS 12:25 → 1NO 12:46 → CMPTRNSPT 12:57 → 1NO 13:00 → ENTRNSPT 02-01 07:09 → EDTRNSPTSTS 02-01 07:18 → CMPTRNSPT 02-01 07:47 → 2NA 02-01 07:48 → ENTRNSPT 02-01 15:32 → EDTRNSPT 02-01 15:34 → EDTRNSPTSTS 02-01 15:34 → 2NA 02-01 15:42 → CMPTRNSPT 02-01 16:13
PROVIDERS: Emergency Medicine; Student in an Organized Health Care Education/Training Program
DX: J18.9 Pneumonia, unspecified organism (principal); J84.9 Interstitial pulmonary disease, unspecified; N17.9 Acute kidney failure, unspecified; I13.0 Hypertensive heart and chronic kidney disease with heart failure and stage 1 through stage 4 chronic kidney disease, or unspecified chronic kidney disease; I27.20 Pulmonary hypertension, unspecified; J43.9 Emphysema, unspecified; E78.5 Hyperlipidemia, unspecified; K21.9 Gastro-esophageal reflux disease without esophagitis; R00.0 Tachycardia, unspecified; I50.9 Heart failure, unspecified; N18.3 Chronic kidney disease, stage 3 (moderate); E11.22 Type 2 diabetes mellitus with diabetic chronic kidney disease
CPT/HCPCS: 1NP; 36592; 71045; 81003; 82436; 87040; 87070; 87449; 87450; 87804; 87804-59; 93005; 93010; 93970; 96374; 99291; J0456; J0696; J1644; J3490; J7040; J7060